=== PATIENT | male | born 1955 | race Caucasian/White ===

== ENCOUNTER 2018-01-17 13:59 | Emergency (ER) | payer OTHER ==
[~2018-01-17] VITALS: Ht 185.4 cm; Wt 92.0 kg
[~2018-01-17 13:59] MED LIST: SULF1TAB42 PO
[2018-01-17 14:18] VITALS: BP 141/83
== END 2018-01-17 17:14 | disposition home or self-care (01) ==
LOC: EMS 14:00
DX: T83.038A Leakage of other urinary catheter, initial encounter (principal); Z46.6 Encounter for fitting and adjustment of urinary device

== ENCOUNTER 2018-06-22 16:54 | Emergency (ER) | payer OTHER ==
[~2018-06-22] VITALS: Ht 185.4 cm; Wt 90.9 kg
[2018-06-22 18:47] VITALS: BP 127/78
== END 2018-06-22 19:49 | disposition home or self-care (01) ==
LOC: EMS 16:54
DX: T83.038A Leakage of other urinary catheter, initial encounter (principal)

== ENCOUNTER 2022-12-18 16:30 | Emergency (ER) | payer MEDICARE, OTHER ==
[~2022-12-18] VITALS: Ht 185.4 cm; Wt 81.8 kg
[2022-12-18] MEDS ORDERED: OMEP20CA12 PO (16:36)
[2022-12-18] MEDS ORDERED: METO-408 PO (16:36)
[2022-12-18 16:38] VITALS: TEMP 98.1
[2022-12-18 17:20] VITALS: BP 148/98; PULSE 88; RESP 18
== END 2022-12-18 18:02 | disposition home or self-care (01) ==
LOC: EMS 16:31
DX: T83.098A Other mechanical complication of other urinary catheter, initial encounter (principal); Z98.890 Other specified postprocedural states; X58.XXXA Exposure to other specified factors, initial encounter
CPT/HCPCS: 51705; 99281; 99282; 99284; Z7502

== ENCOUNTER 2024-09-01 06:51 | Emergency (ER) | payer MEDICARE, OTHER ==
[~2024-09-01] VITALS: Ht 185.4 cm; Wt 95.0 kg
[~2024-09-01 06:51] MED LIST changes: +METO-408 PO; +OMEP20CA12 PO; -SULF1TAB42 PO
[2024-09-01 07:59] VITALS: BP 118/80; PULSE 74; RESP 18; TEMP 97.9; O2SAT 99
== END 2024-09-01 08:06 | disposition home or self-care (01) ==
LOC: EMS 07:00
DX: T83.010A Breakdown (mechanical) of cystostomy catheter, initial encounter (principal); Z79.899 Other long term (current) drug therapy
CPT/HCPCS: 99281; Z7502